=== PATIENT | male | born 1970 | race Caucasian/White ===

== ENCOUNTER 2024-05-11 16:07 | Inpatient (IN) | payer MEDICAID ==
[~2024-05-11] VITALS: Ht 165.1 cm; Wt 68.9 kg
[2024-05-11] VITALS (8 sets, daily range): BP systolic 170–211; BP diastolic 111–142; PULSE 91–120; RESP 41–50; TEMP 96.7–97.6; O2SAT 89–100
[2024-05-11] MEDS: NITROGLYCERIN 0.4 MG TAB SL ONE ×2 (16:16→17:31)
[2024-05-11 16:28] LABS: HEMOGLOBIN 15.5 g/dL (12.0-18.0); MEAN CORPUSCULAR VOLUME 89.7 fL (80-94)
[2024-05-11] MEDS ORDERED: INTUBATION KIT MC ONE (16:33)
[2024-05-11] MEDS: ALBUTEROL SULFATE/IPRATROPIU 3 ML SOL IH ONE (16:52)
[2024-05-11 16:54] LABS: HEMATOCRIT 46.4 % (36-52); LYMPHOCYTES # (AUTO) 0.4 K/uL (2.0-11.5); LYMPHOCYTES % (AUTO) 2.4 % (20.5-51.1); MEAN CORPUSCULAR HEMOGLOBIN 30 pg (27-31); MEAN CORPUSCULAR HGB CONC 33 g/dL (33-37); MONOCYTES % (AUTO) 6.2 % (1.7-9.3); NEUTROPHILS % (AUTO) 91.4 % (42.2-75.2); PLATELET COUNT (AUTO) 235 K/uL (140-450); RED BLOOD CELL COUNT(AUTO) 5.17 MIL/uL (4.20-6.10); WHITE BLOOD COUNT (AUTO) 15.3 K/uL (4.8-10.8)
[2024-05-11 16:58] LABS: ALBUMIN 3.9 g/dL (3.4-5.0); ANION GAP 11.3 (8-16); CALCIUM 8.6 mg/dL (8.5-10.1); CARBON DIOXIDE 31.3 mmol/L (21-32); CREATININE 1.1 mg/dL (0.6-1.3); POTASSIUM 4.6 mmol/L (3.5-5.1); TOTAL BILIRUBIN 1.1 mg/dL (0.0-1.0); TOTAL PROTEIN, SERUM 7.6 g/dL (6.4-8.2)
[2024-05-11] MEDS ORDERED: VANCOMYCIN 1,000 MG VIAL ONE (18:05)
[2024-05-11] MEDS ORDERED: PIPERACILLIN/TAZOBACTAM 4.5 GM VIAL IV ONE (18:05)
[2024-05-11] MEDS: MORPHINE SULFATE 4 MG/ML SYR IVP ONE (18:11)
[2024-05-11] MEDS: VANCOMYCIN 1,000 MG in DEXTROSE 5% 250 ML IV ONE (18:13)
[2024-05-11] MEDS: PIPERACILLIN/TAZOBACTAM 4.5 GM in DEXTROSE 5% 100 ML IV ONE (18:14)
[2024-05-11] MEDS ORDERED: SIME80TA41 PO (18:25)
[2024-05-11] MEDS ORDERED: ONDA-188 PO (18:25)
[2024-05-11] MEDS ORDERED: AZITHROMYCIN 500 MG INJ VIAL IV ONE (19:10)
[2024-05-11] MEDS: AZITHROMYCIN 500 MG in DEXTROSE 5% 250 ML IV ONE (19:26)
[2024-05-11] MEDS: NACL 0.9% 1,000 ML IV ONE (21:01)
[2024-05-11] MEDS: NACL 0.9% 1,000 ML IV SCH (21:55)
[2024-05-11 22:34] LABS: FLU A ANTIGEN negative (NEGATIVE); FLU B ANTIGEN negative (NEGATIVE)
[2024-05-11] MEDS: ENALAPRILAT 2.5 MG/2 ML VIAL IVP ONE (22:54)
[2024-05-11 23:10] LABS: ANION GAP 13.3 (8-16); CALCIUM 8.2 mg/dL (8.5-10.1); CARBON DIOXIDE 26.9 mmol/L (21-32); CREATININE 0.9 mg/dL (0.6-1.3); POTASSIUM 5.2 mmol/L (3.5-5.1)
[2024-05-11 23:20] LABS: LACTIC ACID 1.4 mmol/L (0.4-2.0)
[2024-05-12] VITALS (27 sets, daily range): BP systolic 85–156; BP diastolic 54–102; PULSE 57–102; RESP 18–36; TEMP 97.5–98.1; O2SAT 94–99
[2024-05-12] MEDS ORDERED: CEFEPIME 2,000 MG VIAL IV ONE (03:42)
[2024-05-12] MEDS: CEFEPIME 2,000 MG in DEXTROSE 5% 100 ML IV SCH (05:10)
[2024-05-12 05:22] LABS: ALBUMIN 3.3 g/dL (3.4-5.0); ANION GAP 12.4 (8-16); CARBON DIOXIDE 27.8 mmol/L (21-32); CREATININE 0.8 mg/dL (0.6-1.3); POTASSIUM 5.2 mmol/L (3.5-5.1); TOTAL BILIRUBIN 1.2 mg/dL (0.0-1.0); TOTAL PROTEIN, SERUM 6.8 g/dL (6.4-8.2)
[2024-05-12 05:38] LABS: BASOPHILS % (AUTO) 0.1 % (0.0-2.0); HEMOGLOBIN 15.4 g/dL (12.0-18.0); LYMPHOCYTES # (AUTO) 0.5 K/uL (2.0-11.5); MONOCYTES # (AUTO) 1.4 K/uL (0.8-1.0); RED CELL DISTRIBUTION WIDTH 12.9 % (11.6-13.7)
[2024-05-12 05:41] LABS: HEMATOCRIT 45.5 % (36-52); LYMPHOCYTES % (AUTO) 3.7 % (20.5-51.1); MEAN CORPUSCULAR HEMOGLOBIN 30 pg (27-31); MEAN CORPUSCULAR HGB CONC 34 g/dL (33-37); MEAN CORPUSCULAR VOLUME 89.2 fL (80-94); MONOCYTES % (AUTO) 10.6 % (1.7-9.3); NEUTROPHILS # (AUTO) 11.2 K/uL (1.8-7.7); NEUTROPHILS % (AUTO) 85.6 % (42.2-75.2); PLATELET COUNT (AUTO) 178 K/uL (140-450); WHITE BLOOD COUNT (AUTO) 13.1 K/uL (4.8-10.8)
[2024-05-12] MEDS ORDERED: ENOXAPARIN 40 MG/0.4 ML SYR SUBQ SCH (09:00)
[2024-05-12] MEDS ORDERED: AZITHROMYCIN 500 MG in DEXTROSE 5% 250 ML IV SCH (09:00)
[2024-05-12] MEDS ORDERED: CALCIUM GLUCONATE 10% 1,000 MG in NACL 0.9% 50 ML IV ONE (10:30)
[2024-05-12 10:46] LABS: INR 1.01 (0.8-1.2); PROTHROMBIN TIME 10.6 secs (10.8-13.4)
[2024-05-12] MEDS ORDERED: SODIUM ZIRCONIUM CYCLOSILICATE 10 GM POWD.PACK PO ONE (11:10)
[2024-05-12] MEDS: SODIUM BICARBONATE 8.4% PFS 50 MEQ/50 ML SYR IVP SCH (11:43)
[2024-05-12] MEDS: DEXTROSE 50% 50 ML SYR IVP SCH (11:43)
[2024-05-12] MEDS: INSULIN REGULAR, HUMAN 100 UNIT/ML VIAL IVP SCH (11:46)
[2024-05-12] MEDS: DEXMEDETOMIDINE HCL 400 MCG in NACL 0.9% 96 ML IV PRN (11:48)
[2024-05-12] MEDS: CALCIUM GLUC 1 GM/50 mL NS BAG 50 ML IV SCH (11:49)
[2024-05-12] MEDS ORDERED: SODIUM PHOSPHATE 118 ML ENEM RC SCH (12:45)
[2024-05-12] MEDS: metroNIDAZOLE 500 MG/NS PREMIX 100 ML IV SCH (13:20)
[2024-05-12] MEDS: AZITHROMYCIN 500 MG in DEXTROSE 5% 250 ML IV SCH (18:03)
[2024-05-12] MEDS: SODIUM PHOSPHATE 118 ML ENEM RC SCH (22:03)
[2024-05-13] VITALS (32 sets, daily range): BP systolic 98–144; BP diastolic 56–100; PULSE 52–93; RESP 17–37; TEMP 97.4–98; O2SAT 92–99
[2024-05-13 04:52] LABS: BASOPHILS % (AUTO) 0.1 % (0.0-2.0); EOSINOPHILS % (AUTO) 0.1 % (0.0-4.0); HEMOGLOBIN 12.9 g/dL (12.0-18.0); LYMPHOCYTES # (AUTO) 0.7 K/uL (2.0-11.5); LYMPHOCYTES % (AUTO) 10.4 % (20.5-51.1); MEAN CORPUSCULAR HEMOGLOBIN 31 pg (27-31); MEAN CORPUSCULAR HGB CONC 34 g/dL (33-37); MONOCYTES # (AUTO) 0.9 K/uL (0.8-1.0); MONOCYTES % (AUTO) 12.9 % (1.7-9.3); NEUTROPHILS # (AUTO) 5.4 K/uL (1.8-7.7); NEUTROPHILS % (AUTO) 76.5 % (42.2-75.2); PLATELET COUNT (AUTO) 159 K/uL (140-450); RED BLOOD CELL COUNT(AUTO) 4.18 MIL/uL (4.20-6.10)
[2024-05-13 05:26] LABS: ALBUMIN 2.5 g/dL (3.4-5.0); ANION GAP 7.4 (8-16); CALCIUM 7.9 mg/dL (8.5-10.1); CARBON DIOXIDE 32.2 mmol/L (21-32); CREATININE 0.9 mg/dL (0.6-1.3); MAGNESIUM 2.2 mg/dL (1.8-2.4); PHOSPHORUS 3.5 mg/dL (2.5-4.9); POTASSIUM 4.6 mmol/L (3.5-5.1); TOTAL BILIRUBIN 0.8 mg/dL (0.0-1.0); TOTAL PROTEIN, SERUM 4.7 g/dL (6.4-8.2)
[2024-05-13] MEDS: ALBUTEROL SULFATE/IPRATROPIU 3 ML SOL IH PRN (07:32)
[2024-05-13] MEDS: SODIUM PHOSPHATE 118 ML ENEM RC SCH (08:06)
[2024-05-13] MEDS: diphenhydrAMINE 50 MG/ML VIAL ONE (08:16)
[2024-05-13] MEDS: fentaNYL citrate 0.05 MG/ML VIAL ONE (08:16)
[2024-05-13] MEDS: MIDAZOLAM 5 MG/5 ML VIAL ONE ×2 (08:17)
[2024-05-13] MEDS: LIDOCAINE 2% 100 MG/5 ML UJET TP ONE (08:25)
[2024-05-13] MEDS: MIDAZOLAM 2 MG/2 ML VIAL IVP ONE (08:42)
[2024-05-13] MEDS: fentaNYL citrate 0.05 MG/ML VIAL IVP ONE (08:43)
[2024-05-13] MEDS: PANTOPRAZOLE 40 MG INJ VIAL IVP SCH (09:53)
[2024-05-14] VITALS (28 sets, daily range): BP systolic 115–154; BP diastolic 75–97; PULSE 60–87; RESP 13–35; TEMP 97.2–98.8; O2SAT 94–99
[2024-05-14 05:17] LABS: BASOPHILS % (AUTO) 0.3 % (0.0-2.0); EOSINOPHILS % (AUTO) 0.4 % (0.0-4.0); HEMATOCRIT 43.1 % (36-52); HEMOGLOBIN 14.4 g/dL (12.0-18.0); LYMPHOCYTES # (AUTO) 0.8 K/uL (2.0-11.5); LYMPHOCYTES % (AUTO) 13.5 % (20.5-51.1); MEAN CORPUSCULAR HEMOGLOBIN 30 pg (27-31); MEAN CORPUSCULAR HGB CONC 33 g/dL (33-37); MEAN CORPUSCULAR VOLUME 90.7 fL (80-94); MONOCYTES # (AUTO) 0.7 K/uL (0.8-1.0); MONOCYTES % (AUTO) 11.2 % (1.7-9.3); NEUTROPHILS # (AUTO) 4.6 K/uL (1.8-7.7); NEUTROPHILS % (AUTO) 74.6 % (42.2-75.2); PLATELET COUNT (AUTO) 153 K/uL (140-450); RED BLOOD CELL COUNT(AUTO) 4.76 MIL/uL (4.20-6.10); RED CELL DISTRIBUTION WIDTH 13.2 % (11.6-13.7); WHITE BLOOD COUNT (AUTO) 6.2 K/uL (4.8-10.8)
[2024-05-14 07:15] LABS: ANION GAP 11.4 (8-16); CALCIUM 8.2 mg/dL (8.5-10.1); CARBON DIOXIDE 30.7 mmol/L (21-32); CREATININE 0.9 mg/dL (0.6-1.3); POTASSIUM 4.1 mmol/L (3.5-5.1)
[2024-05-14 07:34] LABS: ALBUMIN 2.8 g/dL (3.4-5.0); MAGNESIUM 1.9 mg/dL (1.8-2.4); PHOSPHORUS 3.1 mg/dL (2.5-4.9); TOTAL BILIRUBIN 0.9 mg/dL (0.0-1.0); TOTAL PROTEIN, SERUM 6.1 g/dL (6.4-8.2)
[2024-05-14] MEDS ORDERED: ONDANSETRON 4 MG/2 ML VIAL ONE (08:00)
[2024-05-14] MEDS ORDERED: PROPOFOL 200 MG/20 ML VIAL IV ONE (08:00)
[2024-05-14] MEDS ORDERED: ROCURONIUM 50 MG/5 ML VIAL IV ONE (08:00)
[2024-05-14] MEDS ORDERED: SEVOFLURANE 250 ML BTL INH ONE (08:00)
[2024-05-14] MEDS ORDERED: SUCCINYLCHOLINE CHLORIDE 200 MG/10 ML VIAL IVP ONE (08:00)
[2024-05-14] MEDS ORDERED: MEPERIDINE 25 MG/ML SYR IVP PRN (08:30)
[2024-05-14] MEDS ORDERED: HYDROmorphone 1 MG/ML AMP IVP PRN (08:30)
[2024-05-14] MEDS ORDERED: ONDANSETRON 4 MG/2 ML VIAL IVP PRN (08:30)
[2024-05-14] MEDS: PROPOFOL 1000 MG/100 ML PREMIX 100 ML IV ONE (10:01)
[2024-05-14 11:08] LABS: BLOOD GAS BASE EXCESS -0.3 mmol/L (-2.0-3.0); BLOOD GAS HCO3 24.9 mmol/L (21.0-28.0); BLOOD GAS PCO2 42.6 mmHg (35.0-48.0); BLOOD GAS PH 7.348 (7.350-7.450); BLOOD GAS PO2 74.4 mmHg (83.0-108.0)
[2024-05-14 11:09] LABS: BLOOD GAS O2 SAT% 94.6 % (94.0-98.0)
[2024-05-14] MEDS: DEXT 5% /NACL 0.9% 1,000 ML IV SCH (11:57)
[2024-05-14] MEDS: PROPOFOL 1000 MG/100 ML PREMIX 100 ML IV PRN (13:45)
[2024-05-15] VITALS (27 sets, daily range): BP systolic 109–177; BP diastolic 73–98; PULSE 69–95; RESP 18–27; TEMP 97.6–99.2; O2SAT 94–99
[2024-05-15 05:47] LABS: BASOPHILS % (AUTO) 0.1 % (0.0-2.0); EOSINOPHILS % (AUTO) 0.1 % (0.0-4.0); HEMATOCRIT 37.3 % (36-52); HEMOGLOBIN 12.7 g/dL (12.0-18.0); LYMPHOCYTES # (AUTO) 0.4 K/uL (2.0-11.5); MEAN CORPUSCULAR HEMOGLOBIN 31 pg (27-31); MEAN CORPUSCULAR HGB CONC 34 g/dL (33-37); MEAN CORPUSCULAR VOLUME 90.7 fL (80-94); MONOCYTES # (AUTO) 0.9 K/uL (0.8-1.0); MONOCYTES % (AUTO) 10.1 % (1.7-9.3); NEUTROPHILS # (AUTO) 7.8 K/uL (1.8-7.7); NEUTROPHILS % (AUTO) 85.7 % (42.2-75.2); PLATELET COUNT (AUTO) 182 K/uL (140-450); RED BLOOD CELL COUNT(AUTO) 4.11 MIL/uL (4.20-6.10); RED CELL DISTRIBUTION WIDTH 13.3 % (11.6-13.7); WHITE BLOOD COUNT (AUTO) 9.1 K/uL (4.8-10.8)
[2024-05-15 07:14] LABS: ALBUMIN 2.3 g/dL (3.4-5.0); CALCIUM 7.7 mg/dL (8.5-10.1); CREATININE 0.9 mg/dL (0.6-1.3); MAGNESIUM 2.1 mg/dL (1.8-2.4); PHOSPHORUS 3.4 mg/dL (2.5-4.9); POTASSIUM 4.2 mmol/L (3.5-5.1); TOTAL BILIRUBIN 0.5 mg/dL (0.0-1.0); TOTAL PROTEIN, SERUM 5.1 g/dL (6.4-8.2)
[2024-05-15 07:22] LABS: CARBON DIOXIDE 30.2 mmol/L (21-32)
[2024-05-15] MEDS: MORPHINE SULFATE 2 MG/ML SYR IVP PRN (13:07)
[2024-05-15] MEDS: ONDANSETRON 4 MG/2 ML VIAL IVP PRN (18:59)
[2024-05-15] MEDS: hydrALAZINE 20 MG/ML VIAL IVP PRN (19:01)
[2024-05-16] VITALS (16 sets, daily range): BP systolic 135–161; BP diastolic 80–95; PULSE 69–88; RESP 20–78; TEMP 97.5–99.7; O2SAT 94–99
[2024-05-16 05:23] LABS: BASOPHILS % (AUTO) 0.2 % (0.0-2.0); EOSINOPHILS % (AUTO) 0.1 % (0.0-4.0); HEMATOCRIT 37.8 % (36-52); HEMOGLOBIN 12.6 g/dL (12.0-18.0); LYMPHOCYTES # (AUTO) 0.3 K/uL (2.0-11.5); LYMPHOCYTES % (AUTO) 3.2 % (20.5-51.1); MEAN CORPUSCULAR HEMOGLOBIN 30 pg (27-31); MEAN CORPUSCULAR HGB CONC 34 g/dL (33-37); MEAN CORPUSCULAR VOLUME 90.8 fL (80-94); MONOCYTES # (AUTO) 0.9 K/uL (0.8-1.0); MONOCYTES % (AUTO) 8.6 % (1.7-9.3); NEUTROPHILS # (AUTO) 9.3 K/uL (1.8-7.7); NEUTROPHILS % (AUTO) 87.9 % (42.2-75.2); PLATELET COUNT (AUTO) 176 K/uL (140-450); RED BLOOD CELL COUNT(AUTO) 4.16 MIL/uL (4.20-6.10); RED CELL DISTRIBUTION WIDTH 13.4 % (11.6-13.7); WHITE BLOOD COUNT (AUTO) 10.5 K/uL (4.8-10.8)
[2024-05-16 06:53] LABS: ALBUMIN 2.2 g/dL (3.4-5.0); ANION GAP 6.4 (8-16); CALCIUM 7.9 mg/dL (8.5-10.1); CARBON DIOXIDE 33.3 mmol/L (21-32); CREATININE 0.7 mg/dL (0.6-1.3); PHOSPHORUS 2.5 mg/dL (2.5-4.9); POTASSIUM 3.7 mmol/L (3.5-5.1); TOTAL BILIRUBIN 0.5 mg/dL (0.0-1.0); TOTAL PROTEIN, SERUM 5.4 g/dL (6.4-8.2)
[2024-05-16] MEDS: ENOXAPARIN 40 MG/0.4 ML SYR SUBQ SCH (08:08)
[2024-05-16] MEDS: MORPHINE SULFATE 4 MG/ML SYR IVP PRN (08:09)
[2024-05-16] MEDS: CEFEPIME 2,000 MG in DEXTROSE 5% 100 ML IV SCH (13:21)
[2024-05-16] MEDS: metroNIDAZOLE 500 MG/NS PREMIX 100 ML IV SCH (20:27)
[2024-05-17] VITALS (13 sets, daily range): BP systolic 131–150; BP diastolic 78–93; PULSE 66–85; RESP 19–26; TEMP 97.9–98.9; O2SAT 94–98
[2024-05-17 05:24] LABS: BASOPHILS % (AUTO) 0.3 % (0.0-2.0); EOSINOPHILS # (AUTO) 0.1 K/uL (0-0.4); EOSINOPHILS % (AUTO) 0.8 % (0.0-4.0); HEMATOCRIT 36.6 % (36-52); HEMOGLOBIN 12.4 g/dL (12.0-18.0); LYMPHOCYTES # (AUTO) 0.8 K/uL (2.0-11.5); LYMPHOCYTES % (AUTO) 8.8 % (20.5-51.1); MEAN CORPUSCULAR HEMOGLOBIN 31 pg (27-31); MEAN CORPUSCULAR HGB CONC 34 g/dL (33-37); MEAN CORPUSCULAR VOLUME 90.7 fL (80-94); MONOCYTES # (AUTO) 0.9 K/uL (0.8-1.0); MONOCYTES % (AUTO) 10.6 % (1.7-9.3); NEUTROPHILS % (AUTO) 79.5 % (42.2-75.2); PLATELET COUNT (AUTO) 191 K/uL (140-450); RED BLOOD CELL COUNT(AUTO) 4.03 MIL/uL (4.20-6.10); RED CELL DISTRIBUTION WIDTH 12.9 % (11.6-13.7); WHITE BLOOD COUNT (AUTO) 8.8 K/uL (4.8-10.8)
[2024-05-17 06:15] LABS: ANION GAP 5.5 (8-16); CALCIUM 7.7 mg/dL (8.5-10.1); CARBON DIOXIDE 34.2 mmol/L (21-32); CREATININE 0.8 mg/dL (0.6-1.3); MAGNESIUM 1.9 mg/dL (1.8-2.4); PHOSPHORUS 1.9 mg/dL (2.5-4.9); POTASSIUM 3.7 mmol/L (3.5-5.1); TOTAL BILIRUBIN 0.6 mg/dL (0.0-1.0); TOTAL PROTEIN, SERUM 5.3 g/dL (6.4-8.2)
[2024-05-17] MEDS ORDERED: TPN PER PHARMACY MC PRN (14:05)
[2024-05-18] VITALS (8 sets, daily range): BP systolic 136–146; BP diastolic 89–96; PULSE 69–97; RESP 18; TEMP 97.4–98.8; O2SAT 93–97
[2024-05-18] MEDS ORDERED: METOCLOPRAMIDE 10 MG/2 ML INJ VIAL IVP PRN (07:10)
[2024-05-18 07:27] LABS: BASOPHILS % (AUTO) 0.2 % (0.0-2.0); EOSINOPHILS # (AUTO) 0.1 K/uL (0-0.4); EOSINOPHILS % (AUTO) 1.2 % (0.0-4.0); HEMATOCRIT 40.6 % (36-52); HEMOGLOBIN 13.6 g/dL (12.0-18.0); LYMPHOCYTES # (AUTO) 0.7 K/uL (2.0-11.5); LYMPHOCYTES % (AUTO) 10.4 % (20.5-51.1); MEAN CORPUSCULAR HEMOGLOBIN 30 pg (27-31); MEAN CORPUSCULAR HGB CONC 33 g/dL (33-37); MONOCYTES # (AUTO) 0.8 K/uL (0.8-1.0); MONOCYTES % (AUTO) 11.8 % (1.7-9.3); NEUTROPHILS # (AUTO) 5.2 K/uL (1.8-7.7); NEUTROPHILS % (AUTO) 76.4 % (42.2-75.2); PLATELET COUNT (AUTO) 230 K/uL (140-450); RED BLOOD CELL COUNT(AUTO) 4.46 MIL/uL (4.20-6.10); RED CELL DISTRIBUTION WIDTH 12.7 % (11.6-13.7); WHITE BLOOD COUNT (AUTO) 6.9 K/uL (4.8-10.8)
[2024-05-18 07:48] LABS: ALBUMIN 2.3 g/dL (3.4-5.0); ANION GAP 10.8 (8-16); CARBON DIOXIDE 30.8 mmol/L (21-32); CREATININE 0.7 mg/dL (0.6-1.3); MAGNESIUM 1.8 mg/dL (1.8-2.4); PHOSPHORUS 2.9 mg/dL (2.5-4.9); POTASSIUM 3.6 mmol/L (3.5-5.1); TOTAL BILIRUBIN 0.8 mg/dL (0.0-1.0); TOTAL PROTEIN, SERUM 5.7 g/dL (6.4-8.2)
[2024-05-18] MEDS: BLOOD GLUCOSE MONITORING 1 DEV DEV MC SCH (12:35)
[2024-05-18] MEDS: METOCLOPRAMIDE 10 MG/2 ML INJ VIAL IVP SCH (12:49)
[2024-05-18] MEDS: MULTIVITAMIN-12 10 ML in DEXTROSE 50% 665 ML, AMINO ACIDS 8.5% 665 ML, FAT EMULSION 20%... IV SCH (20:00)
[2024-05-18] MEDS: DEXT 5% /NACL 0.9% 1,000 ML IV SCH (20:00)
[2024-05-19] VITALS (10 sets, daily range): BP systolic 133–144; BP diastolic 78–96; PULSE 70–92; RESP 18; TEMP 97.6–98.4; O2SAT 92–97
[2024-05-19 07:05] LABS: BASOPHILS % (AUTO) 0.7 % (0.0-2.0); EOSINOPHILS # (AUTO) 0.1 K/uL (0-0.4); EOSINOPHILS % (AUTO) 1.7 % (0.0-4.0); HEMATOCRIT 39.9 % (36-52); HEMOGLOBIN 13.5 g/dL (12.0-18.0); LYMPHOCYTES # (AUTO) 0.8 K/uL (2.0-11.5); LYMPHOCYTES % (AUTO) 13.9 % (20.5-51.1); MEAN CORPUSCULAR HEMOGLOBIN 30 pg (27-31); MEAN CORPUSCULAR HGB CONC 34 g/dL (33-37); MEAN CORPUSCULAR VOLUME 89.4 fL (80-94); MONOCYTES # (AUTO) 0.7 K/uL (0.8-1.0); MONOCYTES % (AUTO) 13.3 % (1.7-9.3); NEUTROPHILS # (AUTO) 3.9 K/uL (1.8-7.7); NEUTROPHILS % (AUTO) 70.4 % (42.2-75.2); PLATELET COUNT (AUTO) 250 K/uL (140-450); RED BLOOD CELL COUNT(AUTO) 4.47 MIL/uL (4.20-6.10); RED CELL DISTRIBUTION WIDTH 12.6 % (11.6-13.7); WHITE BLOOD COUNT (AUTO) 5.5 K/uL (4.8-10.8)
[2024-05-19 07:21] LABS: ALBUMIN 2.4 g/dL (3.4-5.0); ANION GAP 10.3 (8-16); CARBON DIOXIDE 31.2 mmol/L (21-32); CREATININE 0.8 mg/dL (0.6-1.3); MAGNESIUM 1.9 mg/dL (1.8-2.4); PHOSPHORUS 3.2 mg/dL (2.5-4.9); POTASSIUM 3.5 mmol/L (3.5-5.1); TOTAL BILIRUBIN 0.7 mg/dL (0.0-1.0); TOTAL PROTEIN, SERUM 5.7 g/dL (6.4-8.2)
[2024-05-20] VITALS (8 sets, daily range): BP systolic 128–152; BP diastolic 85–96; PULSE 72–90; RESP 18; TEMP 98.1–98.6; O2SAT 94–100
[2024-05-20 06:49] LABS: BASOPHILS % (AUTO) 0.4 % (0.0-2.0); EOSINOPHILS # (AUTO) 0.1 K/uL (0-0.4); EOSINOPHILS % (AUTO) 1.9 % (0.0-4.0); HEMATOCRIT 38.6 % (36-52); HEMOGLOBIN 13.1 g/dL (12.0-18.0); LYMPHOCYTES # (AUTO) 0.9 K/uL (2.0-11.5); LYMPHOCYTES % (AUTO) 12.2 % (20.5-51.1); MEAN CORPUSCULAR HEMOGLOBIN 31 pg (27-31); MEAN CORPUSCULAR HGB CONC 34 g/dL (33-37); MONOCYTES # (AUTO) 0.7 K/uL (0.8-1.0); MONOCYTES % (AUTO) 10.3 % (1.7-9.3); NEUTROPHILS # (AUTO) 5.3 K/uL (1.8-7.7); NEUTROPHILS % (AUTO) 75.2 % (42.2-75.2); PLATELET COUNT (AUTO) 244 K/uL (140-450); RED BLOOD CELL COUNT(AUTO) 4.29 MIL/uL (4.20-6.10); RED CELL DISTRIBUTION WIDTH 12.6 % (11.6-13.7); WHITE BLOOD COUNT (AUTO) 7.1 K/uL (4.8-10.8)
[2024-05-20 07:07] LABS: ALBUMIN 2.4 g/dL (3.4-5.0); ANION GAP 10.3 (8-16); CALCIUM 8.1 mg/dL (8.5-10.1); CARBON DIOXIDE 29.6 mmol/L (21-32); CREATININE 0.8 mg/dL (0.6-1.3); PHOSPHORUS 2.9 mg/dL (2.5-4.9); POTASSIUM 3.9 mmol/L (3.5-5.1); TOTAL BILIRUBIN 0.4 mg/dL (0.0-1.0); TOTAL PROTEIN, SERUM 5.9 g/dL (6.4-8.2)
[2024-05-21] VITALS: BP 122/66; PULSE 68; RESP 18; TEMP 98; O2SAT 98
[2024-05-21 06:33] LABS: BASOPHILS % (AUTO) 0.4 % (0.0-2.0); EOSINOPHILS # (AUTO) 0.2 K/uL (0-0.4); EOSINOPHILS % (AUTO) 2.4 % (0.0-4.0); HEMATOCRIT 37.7 % (36-52); HEMOGLOBIN 12.7 g/dL (12.0-18.0); LYMPHOCYTES % (AUTO) 16.8 % (20.5-51.1); MEAN CORPUSCULAR HEMOGLOBIN 30 pg (27-31); MEAN CORPUSCULAR HGB CONC 34 g/dL (33-37); MEAN CORPUSCULAR VOLUME 89.9 fL (80-94); MONOCYTES # (AUTO) 0.6 K/uL (0.8-1.0); MONOCYTES % (AUTO) 10.2 % (1.7-9.3); NEUTROPHILS # (AUTO) 4.4 K/uL (1.8-7.7); NEUTROPHILS % (AUTO) 70.2 % (42.2-75.2); PLATELET COUNT (AUTO) 233 K/uL (140-450); RED BLOOD CELL COUNT(AUTO) 4.19 MIL/uL (4.20-6.10); WHITE BLOOD COUNT (AUTO) 6.2 K/uL (4.8-10.8)
[2024-05-21 07:15] LABS: ALBUMIN 2.4 g/dL (3.4-5.0); ANION GAP 9.4 (8-16); CALCIUM 8.4 mg/dL (8.5-10.1); CARBON DIOXIDE 30.2 mmol/L (21-32); CREATININE 0.9 mg/dL (0.6-1.3); MAGNESIUM 2.1 mg/dL (1.8-2.4); PHOSPHORUS 2.9 mg/dL (2.5-4.9); POTASSIUM 4.6 mmol/L (3.5-5.1); TOTAL BILIRUBIN 0.5 mg/dL (0.0-1.0); TOTAL PROTEIN, SERUM 5.8 g/dL (6.4-8.2)
[2024-05-21 08:00] VITALS: BP 135/79; PULSE 72; PULSE 80; RESP 18; TEMP 97.5; O2SAT 100; O2SAT 96
[2024-05-21 11:05] VITALS: PULSE 95; RESP 20; O2SAT 96
[2024-05-21 16:00] VITALS: BP 159/100; PULSE 95; RESP 18; TEMP 98.1; O2SAT 96
[2024-05-21] MEDS: DEXTROSE IV SCH (19:50)
[2024-05-21] MEDS: MULTIVITAMIN IV SCH (19:50)
[2024-05-21] MEDS: [UNRECOGNIZED DRUG - OTHER] IV SCH (19:50)
[2024-05-21] MEDS: AMINO ACIDS IV SCH (19:50)
[2024-05-21 20:00] VITALS: PULSE 70; PULSE 96; RESP 18; TEMP 97.7; O2SAT 96; O2SAT 97
[2024-05-21] MEDS: DEXT 5% /NACL 0.9% 1,000 ML IV SCH (20:00)
[2024-05-22 04:00] VITALS: BP 145/95; PULSE 86; RESP 20; TEMP 98.5; O2SAT 96
[2024-05-22 06:36] LABS: BASOPHILS % (AUTO) 0.7 % (0.0-2.0); EOSINOPHILS # (AUTO) 0.1 K/uL (0-0.4); EOSINOPHILS % (AUTO) 2.2 % (0.0-4.0); HEMATOCRIT 37.1 % (36-52); HEMOGLOBIN 12.6 g/dL (12.0-18.0); LYMPHOCYTES # (AUTO) 1.2 K/uL (2.0-11.5); LYMPHOCYTES % (AUTO) 19.9 % (20.5-51.1); MEAN CORPUSCULAR HEMOGLOBIN 31 pg (27-31); MEAN CORPUSCULAR HGB CONC 34 g/dL (33-37); MEAN CORPUSCULAR VOLUME 90.2 fL (80-94); MONOCYTES # (AUTO) 0.7 K/uL (0.8-1.0); MONOCYTES % (AUTO) 12.1 % (1.7-9.3); NEUTROPHILS # (AUTO) 3.8 K/uL (1.8-7.7); NEUTROPHILS % (AUTO) 65.1 % (42.2-75.2); PLATELET COUNT (AUTO) 253 K/uL (140-450); RED BLOOD CELL COUNT(AUTO) 4.11 MIL/uL (4.20-6.10); RED CELL DISTRIBUTION WIDTH 12.9 % (11.6-13.7); WHITE BLOOD COUNT (AUTO) 5.8 K/uL (4.8-10.8)
[2024-05-22 07:07] LABS: ALBUMIN 2.5 g/dL (3.4-5.0); ANION GAP 9.9 (8-16); CALCIUM 8.2 mg/dL (8.5-10.1); CARBON DIOXIDE 30.1 mmol/L (21-32); CREATININE 0.8 mg/dL (0.6-1.3); MAGNESIUM 1.8 mg/dL (1.8-2.4); PHOSPHORUS 3.1 mg/dL (2.5-4.9); TOTAL BILIRUBIN 0.3 mg/dL (0.0-1.0); TOTAL PROTEIN, SERUM 5.8 g/dL (6.4-8.2)
[2024-05-22 08:00] VITALS: PULSE 82; RESP 18; TEMP 97.9; O2SAT 96
[2024-05-22 08:04] VITALS: O2SAT 97
[2024-05-22 12:00] VITALS: BP 153/106; PULSE 82; RESP 18; TEMP 97.9; O2SAT 96
[2024-05-22] MEDS ORDERED: COMMUNICATION ORDER MC SCH (13:15)
[2024-05-22] MEDS: INSULIN LISPRO SLIDING SCALE 100 UNITS/ML VIAL SUBQ PRN (17:44)
[2024-05-22 19:33] VITALS: O2SAT 97
[2024-05-22 20:00] VITALS: BP 157/93; PULSE 102; RESP 18; TEMP 97; O2SAT 94; O2SAT 97
[2024-05-23 04:00] VITALS: BP 145/97; PULSE 90; RESP 19; TEMP 97.7; O2SAT 93
[2024-05-23 06:37] LABS: BASOPHILS % (AUTO) 0.5 % (0.0-2.0); EOSINOPHILS # (AUTO) 0.1 K/uL (0-0.4); EOSINOPHILS % (AUTO) 1.6 % (0.0-4.0); HEMATOCRIT 39.8 % (36-52); HEMOGLOBIN 13.3 g/dL (12.0-18.0); LYMPHOCYTES # (AUTO) 1.1 K/uL (2.0-11.5); LYMPHOCYTES % (AUTO) 13.5 % (20.5-51.1); MEAN CORPUSCULAR HEMOGLOBIN 30 pg (27-31); MEAN CORPUSCULAR HGB CONC 33 g/dL (33-37); MEAN CORPUSCULAR VOLUME 90.2 fL (80-94); MONOCYTES # (AUTO) 0.7 K/uL (0.8-1.0); MONOCYTES % (AUTO) 8.2 % (1.7-9.3); NEUTROPHILS # (AUTO) 6.2 K/uL (1.8-7.7); NEUTROPHILS % (AUTO) 76.2 % (42.2-75.2); PLATELET COUNT (AUTO) 272 K/uL (140-450); RED BLOOD CELL COUNT(AUTO) 4.41 MIL/uL (4.20-6.10); RED CELL DISTRIBUTION WIDTH 12.6 % (11.6-13.7); WHITE BLOOD COUNT (AUTO) 8.2 K/uL (4.8-10.8)
[2024-05-23 06:54] LABS: ALBUMIN 2.7 g/dL (3.4-5.0); ANION GAP 10.1 (8-16); CALCIUM 8.7 mg/dL (8.5-10.1); CARBON DIOXIDE 30.7 mmol/L (21-32); CREATININE 0.9 mg/dL (0.6-1.3); MAGNESIUM 1.9 mg/dL (1.8-2.4); PHOSPHORUS 3.3 mg/dL (2.5-4.9); POTASSIUM 3.8 mmol/L (3.5-5.1); TOTAL BILIRUBIN 0.3 mg/dL (0.0-1.0); TOTAL PROTEIN, SERUM 6.1 g/dL (6.4-8.2)
[2024-05-23 08:00] VITALS: BP 147/95; PULSE 76; RESP 16; TEMP 98.1; O2SAT 99
[2024-05-23] MEDS ORDERED: AMLO10TA89 PO (11:23)
[2024-05-23 15:15] VITALS: BP 147/95; PULSE 76; RESP 16; TEMP 98.1
[2024-05-23 16:00] VITALS: BP 155/97; PULSE 94; RESP 16; TEMP 97.8; O2SAT 98
[2024-05-23 20:00] VITALS: PULSE 76; PULSE 96; RESP 16; TEMP 97.5; O2SAT 96; O2SAT 99
[2024-05-24 04:00] VITALS: BP 138/86; PULSE 78; RESP 18; TEMP 97.4; O2SAT 95
[2024-05-24 06:56] LABS: BASOPHILS % (AUTO) 0.7 % (0.0-2.0); EOSINOPHILS # (AUTO) 0.1 K/uL (0-0.4); EOSINOPHILS % (AUTO) 1.8 % (0.0-4.0); HEMATOCRIT 37.1 % (36-52); HEMOGLOBIN 12.6 g/dL (12.0-18.0); LYMPHOCYTES # (AUTO) 1.5 K/uL (2.0-11.5); LYMPHOCYTES % (AUTO) 24.8 % (20.5-51.1); MEAN CORPUSCULAR HEMOGLOBIN 31 pg (27-31); MEAN CORPUSCULAR HGB CONC 34 g/dL (33-37); MEAN CORPUSCULAR VOLUME 90.4 fL (80-94); MONOCYTES # (AUTO) 0.6 K/uL (0.8-1.0); MONOCYTES % (AUTO) 10.3 % (1.7-9.3); NEUTROPHILS # (AUTO) 3.7 K/uL (1.8-7.7); NEUTROPHILS % (AUTO) 62.4 % (42.2-75.2); PLATELET COUNT (AUTO) 271 K/uL (140-450); RED BLOOD CELL COUNT(AUTO) 4.11 MIL/uL (4.20-6.10); RED CELL DISTRIBUTION WIDTH 13.1 % (11.6-13.7)
[2024-05-24 07:05] LABS: ALBUMIN 2.8 g/dL (3.4-5.0); ANION GAP 9.5 (8-16); CALCIUM 8.2 mg/dL (8.5-10.1); CARBON DIOXIDE 31.7 mmol/L (21-32); CREATININE 0.9 mg/dL (0.6-1.3); POTASSIUM 4.2 mmol/L (3.5-5.1); TOTAL BILIRUBIN 0.4 mg/dL (0.0-1.0); TOTAL PROTEIN, SERUM 6.2 g/dL (6.4-8.2)
[2024-05-24 07:42] VITALS: PULSE 90; RESP 20; O2SAT 96
[2024-05-24 08:00] VITALS: BP 142/90; PULSE 84; RESP 16; TEMP 97.9; O2SAT 97
[2024-05-24 11:53] VITALS: BP 142/90; PULSE 84; RESP 16; TEMP 97.9
== END 2024-05-24 12:25 | disposition home health service (06) | DRG 710 ==
LOC: MED 16:07 → MTU 21:12 → MIC 23:09 → MTU 05-17 18:37
PROVIDERS: ADMIT Student in an Organized Health Care Education/Training Program; ATTEND Student in an Organized Health Care Education/Training Program
PROC: 0D9670Z Drainage of Stomach with Drainage Device, Via Natural or Artificial Opening (ICD-10-PCS; 2024-05-11)
PROC: 5A09357 Assistance with Respiratory Ventilation, Less than 24 Consecutive Hours, Continuous Positive Airway Pressure (ICD-10-PCS; 2024-05-11)
PROC: 5A09357 Assistance with Respiratory Ventilation, Less than 24 Consecutive Hours, Continuous Positive Airway Pressure (ICD-10-PCS; 2024-05-12)
PROC: 5A0935A Assistance with Respiratory Ventilation, Less than 24 Consecutive Hours, High Flow/Velocity Cannula (ICD-10-PCS; 2024-05-12)
PROC: 5A09357 Assistance with Respiratory Ventilation, Less than 24 Consecutive Hours, Continuous Positive Airway Pressure (ICD-10-PCS; 2024-05-13)
PROC: 5A0935A Assistance with Respiratory Ventilation, Less than 24 Consecutive Hours, High Flow/Velocity Cannula (ICD-10-PCS; 2024-05-13)
PROC: 0DBN8ZX Excision of Sigmoid Colon, Via Natural or Artificial Opening Endoscopic, Diagnostic (ICD-10-PCS; principal; 2024-05-13 08:30)
PROC: 0D1E0Z4 Bypass Large Intestine to Cutaneous, Open Approach (ICD-10-PCS; 2024-05-14)
PROC: 0DBN0ZZ Excision of Sigmoid Colon, Open Approach (ICD-10-PCS; 2024-05-14)
PROC: 5A1945Z Respiratory Ventilation, 24-96 Consecutive Hours (ICD-10-PCS; 2024-05-14)
PROC: 5A0935A Assistance with Respiratory Ventilation, Less than 24 Consecutive Hours, High Flow/Velocity Cannula (ICD-10-PCS; 2024-05-14)
DX: A41.9 Sepsis, unspecified organism (principal); J96.01 Acute respiratory failure with hypoxia; J69.0 Pneumonitis due to inhalation of food and vomit; K56.699 Other intestinal obstruction unspecified as to partial versus complete obstruction; E87.1 Hypo-osmolality and hyponatremia; C18.7 Malignant neoplasm of sigmoid colon; K63.89 Other specified diseases of intestine; Z20.822 Contact with and (suspected) exposure to COVID-19; E87.20 Acidosis, unspecified; E87.5 Hyperkalemia; R74.01 Elevation of levels of liver transaminase levels; I16.1 Hypertensive emergency; J90 Pleural effusion, not elsewhere classified; R65.20 Severe sepsis without septic shock
CPT/HCPCS: 36415; 36600; 71045; 71275; 76604; 80048; 80053; 82378; 82803; 82948; 83605; 83735; 83880; 84100; 84478; 84484; 85025; 85610; 86886; 86900; 86901; 87040; 87081; 88305; 88309; 88313; 88342; 93005; 94002; 94003; 94010; 94640; 94660; 96365; 96368; 96375; 97110; 97116; 97163-GP; 99291; A9153; J0330; J0360; J0456; J0610; J0692; J1200; J1650; J1815; J2250; J2270; J2405; J2470; J2543; J2704; J2765; J3010; J3370; J3490; J7030; J7060; Q0092; Q9967